=== PATIENT | male | born 1955 | race Caucasian/White ===

== ENCOUNTER 2020-02-22 17:13 | Emergency (ER) | payer OTHER, SELFPAY ==
[2020-02-22 17:13] VITALS: BP 156/89; PULSE 107; RESP 20; TEMP 36.8; O2SAT 92; BMI 23.7
[2020-02-22 17:21] VITALS: BMI 23.7
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
[2020-02-22 17:45] LABS: Absolute Lymphocyte Count 1.49 X10^3/uL (0.83-4.51); Basophil# 0.03 X10^3/uL; Basophil% 0.2 % (0-1); Eosinophil# 0.18 X10^3/uL; Eosinophils% 1.4 % (0-5); Hematocrit 42.1 % (40-54); Hemoglobin 13.7 g/dL (13.0-16.5); Lymphocyte # 1.49 X10^3/ul (4.0); Lymphocyte % 11.9 % (19-41); Mean Corp Hgb Conc 32.5 g/dL (32-36); Mean Corpuscular Volume 89.2 fL (80-94); Mean Platelet Vol. 8.4 fl (6.2-12.0); Monocyte# 0.83 X10^3/uL; Monocyte% 6.6 % (0-10); NRBC Flagged by Analyzer 0 % (0-5); Neutrophil # 9.98 X10^3/uL (2.7-7.7); Neutrophil % 79.7 % (47-70); Platelet Count 377 K/mm3 (150-450); Red Blood Count 4.72 M/mm3 (4.6-6.2); White Blood Count 12.5 K/mm3 (4.4-11.0)
[2020-02-22 17:51] LABS: International Normalized Ratio 1.2; Partial Thromboplast Time 24.9 Seconds (24.1-36.2); Prothrombin Time (Protime)PT. 14.6 SECONDS (11.7-14.9)
[2020-02-22] MEDS: LORazepam 2 MG/ML Syringe 1 MG IV (17:51)
[2020-02-22 17:54] LABS: Anion Gap 7 (5-15); BUN 16 mg/dL (7-18); BUN/Creat Ratio 19.8 RATIO (10-20); Calcium,Total 8.9 mg/dL (8.5-10.1); Chloride 103 mmol/L (98-107); Creatinine, Serum 0.81 mg/dL (0.70-1.30); EST Glomerular Filtration Rate 101 mL/min (>60); Est Glom Filt Rate - Afr Amer 122 mL/min (>60); Estimated Creatinine Clearance 95.55 ml/min; Glucose 131 mg/dL (74-106); Potassium 3.6 mmol/L (3.5-5.1); Sodium Level 136 mmol/L (136-145)
[2020-02-22] MEDS: levETIRAcetam IV 1,000 MG/100 ML BAG 400 MG IV (17:54)
[2020-02-22 17:55] LABS: Bedside Glucose 169 mg/dL (70-110)
[2020-02-22] MEDS: dexAMETHasone 10 MG/ML Vial IV (18:00)
[2020-02-22] MEDS: 0.9% Normal Saline 1,000 ML 100 ML IV (18:01)
[2020-02-22 18:02] VITALS: O2SAT 100
[2020-02-22 18:03] VITALS: BP 143/73; PULSE 108; RESP 20; O2SAT 99
--- NOTE | 2020-02-22 18:05 | ED.RN ---
174 code blue was called in CT scan. pt was being pulled over from scanner, l leg pain, bilateral arm pain, l arm went stiff and then patient starting full body seizing per ct scan staff. pt was placed on left side. turned blue but had a pulse. ER doctor Rod at bedside verbal order for 1mg ativan.
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
[2020-02-22 18:36] LABS: Alcohol, Blood (Medical)-Serum < 3.0 mg/dL
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
[2020-02-22 19:16] VITALS: BP 136/73; PULSE 90; RESP 18; O2SAT 100
== END 2020-02-22 19:17 | disposition short-term general hospital (02) ==
PROVIDERS: Emergency Provider Emergency Medicine
DX: S06.2X0A Diffuse traumatic brain injury without loss of consciousness, initial encounter (principal); R56.9 Unspecified convulsions; C34.92 Malignant neoplasm of unspecified part of left bronchus or lung; V43.52XA Car driver injured in collision with other type car in traffic accident, initial encounter; Y93.9 Activity, unspecified; Y92.9 Unspecified place or not applicable; I49.1 Atrial premature depolarization
CPT/HCPCS: 70450; 71045; 80048; 80320; 82962; 84484; 85025; 85610; 85730; 93005; 96361; 96374; 96375; 99285; J7030; A4216; G0480

== ENCOUNTER → 2020-03-28 13:50 | Outpatient (CLI) | payer OTHER, SELFPAY ==
[2020-03-28 13:03] VITALS: BMI 21.7
[2020-03-28 14:16] LABS: Hematocrit 46.5 % (40-54); Hemoglobin 14.9 g/dL (13.0-16.5); Mean Corpuscular Volume 90.5 fL (80-94); Mean Platelet Vol. 8.4 fl (6.2-12.0); Platelet Count 418 K/mm3 (150-450); RBC Distribution Width CV 13.7 % (11.6-14.6); RBC Distribution Width SD 45.9 fl (35.1-43.9); Red Blood Count 5.14 M/mm3 (4.6-6.2); White Blood Count 12.1 K/mm3 (4.4-11.0)
[2020-03-28 14:24] LABS: International Normalized Ratio 1.1; Prothrombin Time (Protime)PT. 13.5 SECONDS (11.7-14.9)
[2020-03-28 22:08] LABS: Xtra Tube EP Lab EXTRA TUBE
== END ==
PROVIDERS: Referring Provider Internal Medicine Critical Care Medicine; Visit Provider Internal Medicine Critical Care Medicine
DX: R91.8 Other nonspecific abnormal finding of lung field (principal); R59.0 Localized enlarged lymph nodes
CPT/HCPCS: 85027; 85610

== ENCOUNTER 2020-03-31 11:37 | Day surgery (SDC) | payer OTHER, SELFPAY ==
[2020-03-28 13:03] VITALS: BMI 21.7
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
--- NOTE | 2020-03-31 | IMM_PTH ---
PATIENT: JONO POLANCO LOC: EN U#:[id number] AGE/SX: 65/M ROOM: RE03/31/[address]: Dr. Morgan Valentin DO : 1955 BED: DIS: 03/31/2020 SPEC #: [id number] RECD: 04/04/20 10:03 STATUS: TOD REQ #: [id number] QUENTIN: 03/31/20 00:[address]: Morgan Valentin DEPT: IMMUNOHISTOCHEMISTRY RECD BY: Shira Schafer ENTERED: 04/04/20 10:04 SP TYPE: IMMUNO OTHR DR: No Primary Care Phys Tissues: Left lower lobe of lung, NOS Procedures: RCC (add) NAPSIN A (add) CK20 (add) CK5-6 (add) CK7 (add) CK8 (add) HEP PAR (add) TTF1 (add) Pankeratin (initial) P40 (add) PSAP (add) Comments: @ Specimen number changed from [id number] to [id number] @ on 04/04/20 at 1021 by RGOOD. PHYSICIAN & INSTITUTION [address] [address] SPECIMEN INFORMATION: Tissue Source: Left lower lobe Clinical Info: Mediastinal lymphadenopathy, lung mass Specimen Number: [id number] CPT code: 06212, 49133 x10 METHODOLOGY: Deparaffinized sections of prefer/formalin-fixed tissue or PAP/DQ stained slides are incubated with monoclonal/polyclonal antibodies/oligonucleotide probes. Localization is made via biotin free immunoperoxidase method. Appropriate controls are performed and reacted as expected. Results on target cell population are indicated in the following table: RESULTS: ANTIBODY / CLONE RESULT AE1-3 (AE1/AE3/PCK26) positive CK7 (OV-TL12/30) negative CK8 (18qdhoO86) positive CK20 (KS20.8) negative TTF-1 (8G7G3/1) negative Napsin A (Rabbit Polyclonal) negative HepPar (OCh1E5) negative RCC (PN-15) negative PSAP (PASE/4LJ) negative CK5-6 (D5 & 1684) positive P40 (BC28) positive These tests were developed and their performance characteristics determined by [facility]. They may not have been cleared or approved by the U.S. Food and Drug Administration. The FDA has determined that such clearance or approval is not necessary. The above immunohistochemical/dualISH markers are ordered and reviewed by the Pathologist. INTERPRETATION: Left lower lobe, endobronchial biopsy: Non-small cell carcinoma, favor squamous cell carcinoma. SJ:nolan 04/05/20
--- NOTE | 2020-03-31 | ASPIG_PTH ---
PATIENT: JONO POLANCO LOC: [facility] U#:[id number] AGE/SX: 65/M ROOM: RE03/31/[address]: Dr. Morgan Valentin DO : 1955 BED: DIS: 03/31/2020 SPEC #: [id number] RECD: 03/31/20 13:50 STATUS: TOD REQ #: [id number] QUENTIN: 03/31/20 00:[address]: Morgan Valentin DEPT: CYTOLOGY RECD BY: Hailee Woody ENTERED: 03/31/20 13:53 SP TYPE: ASP OUT OTHR DR: No Primary Care Phys Tissues: A - Lung, NOS B - Lung, NOS C - Lung, NOS D - Lung, NOS E - Lung, NOS F - Lung, NOS G - Lung, NOS Procedures: FNA Specimen Adequacy Special Stain Group II Surgery Specimen Level IV Cytology Other HEADER OPERATION: EBUS with TBNA PRE-OP DIAGNOSIS: Mediastinal lymphadenopathy, lung mass TISSUE SUBMITTED: A - EBUS, TBNA, site 4L #1, B - EBUS, TBNA, site 4L #2, C - EBUS, TBNA, site 4L #3, D - EBUS, TBNA, site 7 #4, E - EBUS, TBNA, site 7 #5, F - EBUS, TBNA, site 4L, G - EBUS, TBNA, site 7 DIAGNOSIS CYTOLOGY A. EBUS, TBNA, site 4L #1 (smears): Positive for malignant cells derived from non-small cell carcinoma. B. EBUS, TBNA, site 4L #2 (smears): Positive for a few malignant cells derived from non-small cell carcinoma. C. EBUS, TBNA, site 4L #3 (smears): Positive for a few malignant cells derived from non-small cell carcinoma. D. EBUS, TBNA, site 7 #4 (smears): Positive for a few malignant cells derived from non-small cell carcinoma. E. EBUS, TBNA, site 7 #5 (smears): Positive for malignant cells derived from non-small cell carcinoma. F. EBUS, TBNA, site 4L fluid (cell block): Positive for malignant cells derived from non-small cell carcinoma. G. EBUS, TBNA, site 7 fluid (cell block): Positive for malignant cells derived from non-small cell carcinoma. SJ:nolan 04/04/20 COMMENT The specimen is evaluated at the time of procedure by Dr. Valladares. Rapid Onsite Evaluation: A. EBUS, TBNA, site 4L #1: Positive for malignant cells, non-small cell carcinoma. B. EBUS, TBNA, site 4L #2: Positive for a few malignant cells, non-small cell carcinoma. C. EBUS, TBNA, site 4L #3: Positive for a few malignant cells, non-small cell carcinoma. D. EBUS, TBNA, site 7 #4: Positive for a few malignant cells, non-small cell carcinoma. E. EBUS, TBNA, site 7 #5: Positive for malignant cells, non-small cell carcinoma. Please make reference to corresponding surgical specimen ([id number]) left lower lobe, endobronchial biopsy with diagnosis of non-small cell carcinoma, favor squamous cell carcinoma. Case has been reviewed in consultation with Dr. Mae who concurs with the above diagnosis. IDC:AM CYTOLOGY STUDY Slides are reviewed. CYTOLOGY GROSS A - Received labeled with the patient's name and and designated EBUS, TBNA, site 4L #1. The specimen consists of two stained smears for RENEA (Rapid Onsite Evaluation). B - Received labeled with the patient's name and and designated EBUS, TBNA, site 4L #2. The specimen consists of two stained smears for RENEA. C - Received labeled with the patient's name and and designated EBUS, TBNA, site 4L #3. The specimen consists of two stained smears for RENEA. D - Received labeled with the patient's name and and designated EBUS, TBNA, site 7 #4. The specimen consists of two stained smears for RENEA. E - Received labeled with the patient's name and and designated EBUS, TBNA, site 7 #5. The specimen consists of two stained smears for RENEA. F - Received in RPMI is 35 ml of red cloudy fluid, needle rinsed fluid labeled with the patient's name and and designated EBUS, TBNA, site 4L. The specimen is submitted for cell block preparation. G - Received in RPMI is 35 ml of red cloudy fluid, needle rinsed fluid labeled with the patient's name and and designated EBUS, TBNA, site 7. The specimen is submitted for cell block preparation. / SJ:rg 03/31/20 TC:0 CPT: 75293 x2, 68752 x2, 09068 x2, 38331 x3
[2020-03-31 11:54] VITALS: BP 150/84; PULSE 84; RESP 16; TEMP 36.8; O2SAT 99; BMI 21.3
[2020-03-31] MEDS: Lactated Ringers 1,000 ML 100 ML IV (12:06)
[2020-03-31] MEDS: Lidocaine 2% Jelly 1 APPLIC Tube (13:00)
[2020-03-31] MEDS: 0.9% Normal Saline (Pres. free 10 ML Vial (13:15)
[2020-03-31] MEDS: Epinephrine (1 mg/ml) 1 MG/ML VIAL (13:15)
[2020-03-31 13:40] VITALS: BP 116/60; BP 150/84; PULSE 86; RESP 16; TEMP 36.1; O2SAT 96
[2020-03-31 13:45] VITALS: BP 116/76; BP 150/84; PULSE 83; RESP 16; O2SAT 97
[2020-03-31 13:50] VITALS: BP 115/73; BP 150/84; PULSE 83; RESP 16; O2SAT 95
[2020-03-31 13:51] VITALS: BP 128/70; BP 150/84; PULSE 80; RESP 16; TEMP 36.1; O2SAT 94
--- NOTE | 2020-03-31 13:56 | OP.BRONCH_ITS ---
Patient Name: Gabe Grey Procedure Date: 03/31/2020 12:09 PM Date of : 1955 Age: 65 Procedure: Bronchoscopy Indications: Left lower lobe mass, Mediastinal adenopathy Providers: Morgan Valentin MD Referring MD: Morgan Valentin MD Medicines: See the Anesthesia note for documentation of the administered medications Complications: No immediate complications Procedure: Pre-Anesthesia Assessment: - A History and Physical has been performed. Patient meds and allergies have been reviewed. The risks and benefits of the procedure and the sedation options and risks were discussed with the patient. All questions were answered and informed consent was obtained. Patient identification and proposed procedure were verified prior to the procedure by the physician and the nurse in the procedure room. Mental Status Examination: alert and oriented. Airway Examination: normal oropharyngeal airway. Respiratory Examination: poor air movement. CV Examination: normal. ASA Grade Assessment: II - A patient with mild systemic disease. After reviewing the risks and benefits, the patient was deemed in satisfactory condition to undergo the procedure. The anesthesia plan was to use general anesthesia. Immediately prior to administration of medications, the patient was re-assessed for adequacy to receive sedatives. The heart rate, respiratory rate, oxygen saturations, blood pressure, adequacy of pulmonary ventilation, and response to care were monitored throughout the procedure. The physical status of the patient was re-assessed after the procedure. After I obtained informed consent, the scope was passed under direct vision. Throughout the procedure, the patient's blood pressure, pulse, and oxygen saturations were monitored continuously.The procedure was accomplished without difficulty. The patient tolerated the procedure well. The bronchoscope was introduced through the mouth, via laryngeal mask airway and advanced to the tracheobronchial tree. Findings: The nasopharynx/oropharynx appears normal. The larynx appears normal. The vocal cords appear normal. The subglottic space is normal. The trachea is of normal caliber. The vicky is sharp. The tracheobronchial tree of the right lung was examined to at least the first subsegmental level. Bronchial mucosa and anatomy in the right lung are normal; there are no endobronchial lesions, and no secretions. Left Lung Abnormalities: An endobronchial lesion was found in the distal left mainstem/orifice of left lower lobe. The lesion was hyperemic and bled very easily. The scope was withdrawn and replaced with the EBUS bronchoscope to accomplish the ultrasound examination. Lymph Nodes: An endobronchial ultrasound endoscope was utilized to systematically examine the left lower paratracheal region (level 4L) and subcarinal mediastinum (level 7) in order to assist with fine needle aspiration. Lymph node sizing was performed via endobronchial ultrasound for suspected lung cancer. Sampling by transbronchial needle aspiration was also performed using an Olympus EBUS-TBNA 19 gauge needle in the left lower paratracheal region (level 4L) and subcarinal mediastinum (level 7). - The 4L (lower paratracheal) node was evaluated. Three samples with the needle were obtained. - The 7 (subcarinal) node was evaluated. Two samples with the needle were obtained. Lymph Nodes: Rapid On-Site Evaluation (RENEA): Preliminary cytology was suggestive of non small cell carcinoma (final results are pending) Endobronchial biopsies of a mass were performed in the left lower lobe using a forceps and sent for routine cytology. Two samples were obtained. Impression: - Left lower lobe mass - Mediastinal adenopathy - The airway examination of the right lung was normal. - A lesion was found in the left lower lobe. - Endobronchial ultrasound was performed. - Lymph node sizing and sampling was performed. - Rapid On-Site Evaluation (RENEA): Preliminary cytology was suggestive of non small cell carcinoma (final results are pending). - Endobronchial biopsies were also performed. Recommendation: - Await biopsy results. Procedure Code(s): --- Professional --- 51047, Bronchoscopy, rigid or flexible, including fluoroscopic guidance, when performed; with endobronchial ultrasound (EBUS) guided transtracheal and/or transbronchial sampling (eg, aspiration[s]/biopsy[ies]), one or two mediastinal and/or hilar lymph node stations or structures 79784, Bronchoscopy, rigid or flexible, including fluoroscopic guidance, when performed; with bronchial or endobronchial biopsy(s), single or multiple sites Diagnosis Code(s): --- Professional --- R91.8, Other nonspecific abnormal finding of lung field R59.0, Localized enlarged lymph nodes J98.4, Other disorders of lung R09.89, Other specified symptoms and signs involving the circulatory and respiratory systems CPT copyright 2017 [employer]. All rights reserved. The codes documented in this report are preliminary and upon tire shop manager review may be revised to meet current compliance requirements. DO Morgan Clayton MD 03/31/2020 1:55:49 PM This report has been signed electronically. Number of Addenda: 0 Note Initiated On: 03/31/2020 12:09 PM
[2020-03-31 14:20] VITALS: BP 130/71; BP 150/84; PULSE 86; RESP 18; TEMP 36.3; O2SAT 94
--- NOTE | 2020-03-31 15:31 | LUNG_PTH ---
PATIENT: JONO POLANCO LOC: EN U#:[id number] AGE/SX: 65/M ROOM: RE03/31/[address]: Dr. Morgan Valentin DO : 1955 BED: DIS: 03/31/2020 SPEC #: [id number] RECD: 03/31/20 15:31 STATUS: TOD REGrayson #: [id number] QUENTIN: 03/31/20 15:[address]: Morgan Valentin DEPT: SURGICAL PATHOLOGY RECD BY: Hailee Woody ENTERED: 04/01/20 07:38 SP TYPE: LUNG BX OTHR DR: No Primary Care Phys Tissues: Lung, NOS Procedures: Surgery Specimen Level IV HEADER OPERATION: EBUS with TBNA PRE-OP DIAGNOSIS: Mediastinal lymphadenopathy, lung mass TISSUE SUBMITTED: Endobronchial biopsy left lower lobe MICROSCOPIC DIAGNOSIS Left lower lobe, endobronchial biopsy: Non-small cell carcinoma, favor squamous cell carcinoma. See comment. MARIO:nolan 04/04/20 COMMENT Immunohistochemistry ([id number]) supports the above diagnosis. Molecular studies on the tumor can be performed if clinically indicated. Please notify the laboratory if they are needed. Please make reference to corresponding cytology specimen [id number]. Case has been reviewed in consultation with Dr. Mae who concurs with the above diagnosis. IDC:AM MICROSCOPIC DESCRIPTION Slides are reviewed. GROSS DESCRIPTION Received in fixative is one container labeled with the patient's name and designated endobronchial biopsy LLL. The specimen consists of multiple fragments of hemorrhagic soft tissue that in aggregate measure 0.3 x 0.3 x 0.1 cm. The specimen is totally submitted in one cassette. / MARIO:nolan 04/01/20 TC:0 CPT: 86970 ADDENDUM ADDENDUM ADDENDUM ADDENDUM ADDENDUM ADDENDUM 04/15/2020 12:42 ADDENDUM 04/15/2020 12:42 ADDENDUM 04/15/2020 12:42 ADDENDUM 04/15/2020 12:42 ADDENDUM 04/15/2020 12:42 PD-L1 (KEYTRUDA) IMMUNOHISTOCHEMICAL ANALYSIS FROM [employer] RESULTS: Tumor proportion score: <1% / Negative Please see complete report in e-chart or EMR
== END 2020-03-31 14:46 | disposition home or self-care (01) ==
LOC: EN 11:38 → AC 11:39
PROVIDERS: Referring Provider Internal Medicine Critical Care Medicine; Visit Provider Internal Medicine Critical Care Medicine
PROC: BB4BZZZ Ultrasonography of Pleura (ICD-10-PCS; CPT 31625; principal; 2020-03-31 12:00)
DX: C34.32 Malignant neoplasm of lower lobe, left bronchus or lung (principal); Z20.828 Contact with and (suspected) exposure to other viral communicable diseases; K21.9 Gastro-esophageal reflux disease without esophagitis; Z87.448 Personal history of other diseases of urinary system; F17.210 Nicotine dependence, cigarettes, uncomplicated
CPT/HCPCS: 31625; 31652; 87426; 88161; 88172; 88305; 88313; 88341; 88342; C9803; J7120; J2405; J3490

== ENCOUNTER 2020-04-14 18:47 | Emergency (ER) | payer OTHER, SELFPAY ==
[2020-04-14 18:48] VITALS: BP 160/89; PULSE 101; RESP 17; TEMP 36.8; O2SAT 95; BMI 20.8
--- NOTE | 2020-04-14 19:37 | CT_ITS ---
STUDY: CT BRAIN WITHOUT CONTRAST REASON FOR EXAM: Male, 65 years old. ALTERED MENTAL STATUS/LUNG CANCER WITH BRAIN METS/BRAIN BLEED 02/2020 RADIATION DOSAGE (If Supplied By Facility): CTDIvol = ( 44.99 ) mGy, DLP = ( 846.73 ) mGycm TECHNIQUE: Transaxial CT imaging of the brain was performed without administration of intravenous contrast material. Individualized dose optimization techniques were used for this CT. COMPARISON: Head CT dated February 22, 2020 FINDINGS: Unresolved globular focus of high density associated with cystic volume loss in the posterior aspect of the right parietal lobe. Interval enlargement of the bilobed cyst maximally measuring 2.50 cm compared to 1.44 cm on the prior study. The high density could represent old hemorrhage or hemorrhagic metastatic lesion, which is favored. Surrounding vasogenic edema and slight effacement of the surrounding parenchyma of the right occipital lobe and superior posterior aspect of the right parietal lobe is slightly increased from what was seen on the prior study. Normal soft tissue structures. Normal calvarium. There is mild cerebral atrophy with widening of the extra-axial spaces and ventricular dilatation. There are areas of decreased attenuation within the white matter tracts of the supratentorial brain, consistent with microvascular disease changes. Normal basal ganglia and thalami. Normal brainstem. Normal cerebellum. There are no findings of an acute ischemic infarction. Normal visualized paranasal sinuses. CT/Brain/Head without Contrast IMPRESSION: 1. Enlargement/worsening of hemorrhagic metastatic cystic lesion and surrounding vasogenic edema of the right occipital and parietal lobes. Electronically Signed: Willy Martinez MD at 21:07 EST , Service support ,
--- NOTE | 2020-04-14 19:37 | EKG12_ITS ---
Test Reason : DYSRHYTHMIA Blood Pressure : / mmHG Vent. Rate : 094 BPM Atrial Rate : 094 BPM P-R Int : 176 ms QRS Dur : 096 ms QT Int : 364 ms P-R-T Axes : 059 051 066 degrees QTc Int : 455 ms Normal sinus rhythm Normal ECG Confirmed by TORY MOLINA, VICTORINA ([id number]), editor at large MARGIE MC ([id number]) on 04/15/2020 11:21:14 AM Referred By: WILVER Confirmed By:VICTORINA SPEARS MD
--- NOTE | 2020-04-14 19:38 | ED.VIS.GEN ---
History of Present Illness Chief Complaint: Confusion Informant: Patient Onset: - - unk; noticed today. last seen well 2d ago, 1800 Context: - - unk; see below Quality: altered thinking Current Severity: Severe Maximum Severity: Severe Worsened by: unk Relieved by: nothing Associated Symptoms: pt denies any new sx Narrative: Ex- called EMS on patient today because of confusion. He thought that she was magnetic, and states that he still believes that her close are indeed magnetic. He has a history of lung cancer that was newly diagnosed with mets to the brain, and within the last couple weeks has been set up for chemotherapy next month, seeing oncology locally Dr. Martin, having gamma knife surgery tomorrow, he had a brain bleed a week or 2 ago that he was flown to [facility]. He has been on Decadron ever since. Ex- came over today, found his pill bottles on the floor with some pills scattered around, patient states he has been taking them as prescribed and has taken no extra medications, downplaying most of her comments. He denies headache. He has some dyspnea with exertion over the past several weeks that is no worse. Denies any chest pain or other new symptoms. He does have some trouble seeing peripheral vision to the left and that is not new in the last couple days according to both of them. - Past Medical History (1) Lung cancer metastatic to brain Status: Chronic Past Medical History - Allergies and Home Meds Allergies/Adverse Reactions: Allergies No Known Allergies Allergy (Verified 04/14/20 18:56) Primary Care Physician: Care Physician,No Primary [Primary Care Provider] - Surgical History: no surgical history Lives: Alone Smoking Status: Former smoker - Family History Maternal Family History: Family History (Last Reviewed 03/28/20 @ 13:13 by Abbi Whitt) Mother Diabetes Father Alcoholism Family History: Reports: Hypertension, Renal Disease - on dialysis Paternal Family History: Family History (Last Reviewed 03/28/20 @ 13:13 by Abbi Whitt) Mother Diabetes Father Alcoholism Family History: Reports: No pertinent history Review of Systems General: Denies: Chills, Fever, Sweats Eyes: Reports: Visual changes - left - See HPI. Nothing acute in the last 2 days.. Denies: Diplopia ENT: Denies: Bilateral ear pain, Rhinorrhea, Sore throat Cardiovascular: Denies: Chest pain, Palpitations Respiratory: Reports: Cough, Dyspnea on exertion. Denies: Sputum Gastrointestinal: Denies: Abdominal pain, Nausea, Vomiting, Diarrhea, Melena, Hematochezia Genitourinary: Denies: Dysuria, Hematuria, Frequency Musculoskeletal: Denies: Neck pain, Back pain, Swelling, Extremity Pain Skin: Denies: Rash, Wounds Neurological: Reports: - - Altered mental status. See HPI.. Denies: Headache, Weakness, Numbness Physical Exam Vital Signs/Narrative: Vital Signs Temp Pulse Resp BP Pulse Ox 04/14/20 18:48 98.2 F 101 H 17 160/89 H 95 Inital Vital Signs reviewed: Yes General: Well nourished, Well developed, No Acute Distress Head: Normocephalic, Atraumatic Eyes: Perrl, EOMI ENT: Moist mucous membranes, No rhinorrhea Neck: Supple, Nontender Cardiovascular: Regular rate, Regular rhythm, No murmurs Respiratory: No distress, CTA bilaterally, Chest nontender Abdomen: Soft, Nontender, Nondistended, Normal bowel sounds Back: Nontender, Normal Inspection Extremities: Nontender, No edema Skin: Normal color, No rash Neurological: Alert, Oriented x3 - But patient has some abnormal thinking and processing. Still agreeing that his ex- close her magnetic. He denies any auditory hallucinations and is not acting out on anything. He can lift his arms up, but after repeatedly telling him to drop his left arm, he continues to hold it up., Cranial nerves II-XII grossly intact, Normal Strength, Normal Sensation Psychological: Normal Mood Diagnostic/Tx/Re-eval Impressions Brain CT 04/14/20 19:37 IMPRESSION: 1. Enlargement/worsening of hemorrhagic metastatic cystic lesion and surrounding vasogenic edema of the right occipital and parietal lobes. Electronically Signed: Willy Martinez MD at 21:07 EST , Service support , Chest X-Ray 04/14/20 20:10 IMPRESSION: 1. No change in lobular nodule in the lateral aspect of the left upper lobe with linear scarring radiating from the periphery of the lesion. No recent chest CT exams are available on the PACS system. Consider further assessment with chest CT as a lesion appears to be malignant. 2. Interval appearance of lobularity in the left hilar region likely due to enlarged lymph nodes or perhaps a malignant lesion. Electronically Signed: Willy Martinez MD at 21:00 EST , Service support , 04/14/20 19:37 Brain/Head without Contrast [CT] Stat 04/14/20 20:10 Chest 1 View (Portable) [RAD] Stat Laboratory Results 04/14/20 04/14/20 19:50 19:50 WBC 16.2 H RBC 4.79 Hgb 14.4 Hct 43.9 MCV 91.6 MCH 30.1 MCHC 32.8 RDW Std Deviation 46.3 H RDW Coeff of Akua 13.6 Plt Count 559 H MPV 8.3 Immature Gran % (Auto) 0.900 Neut % (Auto) 90.7 H Lymph % (Auto) 5.1 L Zavala % (Auto) 3.2 Eos % (Auto) 0.0 Baso % (Auto) 0.1 Absolute Neuts (auto) 14.7 H Absolute Lymphs (auto) 0.83 Nucleated RBC % 0 Sodium 137 Potassium 3.8 Chloride 98 Carbon Dioxide 32.0 Anion Gap 7 BUN 27 H Creatinine 0.92 Estim Creat Clear Calc 74.61 Est GFR (MDRD) Af Amer 106 Est GFR (MDRD) Non-Af 88 BUN/Creatinine Ratio 29.4 H Glucose 115 H Calcium 9.9 Troponin I 0.032 - Rhythm Strip Rhythm Strip: Sinus Rhythm Rate: 94 Ectopy: None - EKG Initial EKG Interpretation: Sinus Rhythm, No Acute Injury Pattern - Normal EKG - Medical Decision Making CT shows worsening vasogenic edema in the cerebral metastatic lesion, as well as worsening hemorrhage compared to the prior imaging. It all appears to be local. This may be accounting for his symptoms. Given this, and his mental status, I feel he should be transferred for further evaluation rather than simply discharged to get his gamma knife procedure done tomorrow as an outpatient. It is supposed to be done at [facility] with neurosurgery Dr. Rowan, he prefers to go there. He did have some prerenal azotemia, and did not need to urinate while in the ER so to facilitate specimen collection, was given IV fluids. His leukocytosis is likely related to the Decadron he is taking. I discussed with neurosurgery Dr. Swartz at [facility] accept the patient to the neuro ICU. Since the patient does not have acute new cerebral hemorrhage, and has an acute worsening of a pre-existing hemorrhagic mass, I feel he can safely be transferred by ground which we are obtaining. He is in agreement. [facility] requested a Covid test, a rapid antigen test was performed and is negative. ED Disposition - Plan for ED Patient: Disposition: [facility] - Main Diagnosis: Hemorrhagic cerebrum, Lung cancer metastatic to brain, Altered mental state Referrals: Care Physician,No Primary [Primary Care Provider] -
[2020-04-14 20:05] LABS: Absolute Lymphocyte Count 0.83 X10^3/uL (0.83-4.51); Absolute Neutrophil Count 14.7 X10^3/uL (2.0-7.7); Basophil# 0.02 X10^3/uL; Basophil% 0.1 % (0-1); Hematocrit 43.9 % (40-54); Hemoglobin 14.4 g/dL (13.0-16.5); Lymphocyte # 0.83 X10^3/ul (4.0); Lymphocyte % 5.1 % (19-41); Mean Corp Hgb Conc 32.8 g/dL (32-36); Mean Corpuscular Hgb 30.1 pg (27.0-32.0); Mean Corpuscular Volume 91.6 fL (80-94); Mean Platelet Vol. 8.3 fl (6.2-12.0); Monocyte# 0.52 X10^3/uL; Monocyte% 3.2 % (0-10); NRBC Flagged by Analyzer 0 % (0-5); Neutrophil # 14.68 X10^3/uL (2.7-7.7); Neutrophil % 90.7 % (47-70); Platelet Count 559 K/mm3 (150-450); RBC Distribution Width CV 13.6 % (11.6-14.6); RBC Distribution Width SD 46.3 fl (35.1-43.9); Red Blood Count 4.79 M/mm3 (4.6-6.2); White Blood Count 16.2 K/mm3 (4.4-11.0)
--- NOTE | 2020-04-14 20:10 | RAD_ITS ---
STUDY: X-RAY CHEST REASON FOR EXAM: Male, 65 years old. INCREASED CONFUSION -- PT HAS LUNG AND BRAIN CANCER -- HX OF BRAIN BLEED IN FEBRUARY TECHNIQUE: Single AP portable view of the chest. COMPARISON: February 22, 2020 FINDINGS: No change in lobular nodule in the lateral aspect of the left upper lobe with linear scarring radiating from the periphery of the lesion. Interval appearance of lobularity in the left hilar region likely due to enlarged lymph nodes or perhaps a malignant lesion. This was not definitively seen on the prior chest x-ray. Chronic left lower lobe volume loss may be related to prior surgical resection or other form of treatment. Emphysematous changes reidentified. The right lung is unremarkable. No visualized pleural effusion. Normal size heart. Stable visualized osseous structures. There is no demonstrated abnormality of the visualized soft tissue structures of the upper abdomen. RAD/Chest 1 View (Portable) IMPRESSION: 1. No change in lobular nodule in the lateral aspect of the left upper lobe with linear scarring radiating from the periphery of the lesion. No recent chest CT exams are available on the PACS system. Consider further assessment with chest CT as a lesion appears to be malignant. 2. Interval appearance of lobularity in the left hilar region likely due to enlarged lymph nodes or perhaps a malignant lesion. Electronically Signed: Willy Martinez MD at 21:00 EST , Service support ,
[2020-04-14 20:25] LABS: Anion Gap 7 (5-15); BUN 27 mg/dL (7-18); BUN/Creat Ratio 29.4 RATIO (10-20); Calcium,Total 9.9 mg/dL (8.5-10.1); Chloride 98 mmol/L (98-107); Creatinine, Serum 0.92 mg/dL (0.70-1.30); EST Glomerular Filtration Rate 88 mL/min (>60); Est Glom Filt Rate - Afr Amer 106 mL/min (>60); Estimated Creatinine Clearance 74.61 ml/min; Glucose 115 mg/dL (74-106); Potassium 3.8 mmol/L (3.5-5.1); Sodium Level 137 mmol/L (136-145)
[2020-04-14 20:48] VITALS: BP 161/92; PULSE 95; RESP 27; O2SAT 97
[2020-04-14] MEDS: 0.9% Normal Saline 1,000 ML 999 ML IV (21:54)
[2020-04-14 21:57] VITALS: BP 159/86; PULSE 100; RESP 23; O2SAT 93
[2020-04-14 23:13] VITALS: BP 152/79; PULSE 91; RESP 24; O2SAT 97
[2020-04-14 23:47] VITALS: BP 150/84; PULSE 92; RESP 24; TEMP 36.8; O2SAT 97
== END 2020-04-15 00:49 | disposition short-term general hospital (02) ==
PROVIDERS: Emergency Provider Emergency Medicine
DX: I61.9 Nontraumatic intracerebral hemorrhage, unspecified (principal); C34.90 Malignant neoplasm of unspecified part of unspecified bronchus or lung; C79.31 Secondary malignant neoplasm of brain; Z79.899 Other long term (current) drug therapy; Z87.891 Personal history of nicotine dependence
CPT/HCPCS: 70450; 71045; 80048; 84484; 85025; 87426; 93005; 96360; 99285; J7030; A4216